=== PATIENT | male | born 1975 | race Hispanic/Latino ===

== ENCOUNTER 2017-05-29 09:11 | Observation (INO) | payer OTHER ==
[2017-05-29 09:31] VITALS: BMI 24.4
[2017-05-29] MEDS ORDERED: Amiodarone 150mg/3 ml vial ONE (09:33)
[2017-05-29] MEDS ORDERED: Amiodarone 900 MG in Dextrose 5% In Water 500 ML IVPB SCH (09:43)
[2017-05-29 10:11] LABS: ALKALINE PHOSPHATASE 201 U/L (38-126); ALT/SGPT 56 U/L (21-72); AST/SGOT 167 U/L (17-59); BILIRUBIN,TOTAL 2.1 mg/dl (0.2-1.3); BLOOD UREA NITROGEN 6 mg/dl (9-20); CALCIUM 8.8 mg/dL (8.4-10.2); CARBON DIOXIDE 20 mmol/L (22-30); CHLORIDE 100 mmol/L (98-107); GFR AFRICAN-AMERICAN > 60; GLUCOSE,RANDOM 102 mg/dL (75-110); SODIUM 139 mmol/l (132-148); TOTAL PROTEIN 8.6 G/DL (6.3-8.2)
[2017-05-29 10:17] LABS: ALB/GLOB RATIO 1.2 (1.0-2.1)
[2017-05-29 10:24] LABS: BASO # 0.1 K/uL (0.0-0.2); BASO % 1.3 % (0.0-2.0); EOS # 0.1 K/uL (0.0-0.7); EOS % 0.7 % (0.0-4.0); HEMATOCRIT 39.2 % (35.0-51.0); LYMPH # 1.2 K/uL (1.0-4.3); LYMPH % 14.6 % (20.0-40.0); MEAN CELL VOLUME 99.2 fl (80.0-94.0); MEAN CORPUSCULAR HEMOGLOBIN 34.2 pg (27.0-31.0); MEAN CORPUSCULAR HGB CONC 34.5 g/dL (33.0-37.0); MEAN PLATELET VOLUME 7.8 fl (7.2-11.7); MONO # 0.7 K/uL (0.0-0.8); MONO % 8.8 % (0.0-10.0); NEUT % 74.6 % (50.0-75.0); NRBC % 0.1 % (0.0-0.0); RED CELL DISTRIBUTION WIDTH 12.7 % (11.5-14.5)
[2017-05-29 10:41] LABS: PARTIAL THROMBOPLASTIN TIME 35.5 Seconds (25.6-37.1)
--- NOTE | 2017-05-29 10:41 | ED PDOC ---
HPI: Chest Pain Time Seen by Provider: 05/29/17 09:27 Chief Complaint (Nursing): Chest Pain Chief Complaint (Provider): Chest Pain History Per: Patient History/Exam Limitations: no limitations Onset/Duration Of Symptoms: Days (x2) Current Symptoms Are (Timing): Still Present Additional Complaint(s): Mustapha Jacobs is a 42 year old male with no past medical history who presents to the ED complaining of left sided chest pain with palpitations and shortness of breath x2 days. Patient states they experienced similar symptoms 6 months ago. Patient was admitted and had a normal cardiac catheterization at that time. Patient was discharged with prescriptions for hypertension and hypercholesterolemia medications which he ran out of and never refilled. Patient did not follow up. PMD: Non-[facility] Provider Past Medical History Reviewed: Historical Data, Nursing Documentation, Vital Signs Vital Signs: Last Vital Signs Temp 98.5 F 05/30/17 08:00 Pulse 86 05/30/17 09:00 Resp 18 05/30/17 08:00 BP 125/84 05/30/17 08:00 Pulse Ox 97 05/30/17 08:00 - Medical History PMH: HTN, Hypercholesterolemia Denies: Chronic Kidney Disease - Surgical History Surgical History: Appendectomy (age 16) Other surgeries: Left elbow - Family History Family History: States: Unknown Family Hx, CAD (Father had quadruple bypass at 60yo. ) - Social History Current smoker - smoking cessation education provided: No Ex-Smoker (has not smoked in the last 12 months): Yes Alcohol: > 2 Drinks/Day (11 glasses of wine per day) Drugs: Denies - Home Medications Home Medications: Ambulatory Orders Medication Instructions Recorded Levofloxacin 500 mg PO DAILY #7 ml 05/30/17 - Allergies Allergies/Adverse Reactions: Allergies Allergy/AdvReac Type Severity Reaction Status Date / Time No Known Allergies Allergy Verified 05/29/17 09:30 Review of Systems ROS Statement: Except As Marked, All Systems Reviewed And Found Negative Cardiovascular: Positive for: Chest Pain (Left sided), Palpitations Physical Exam - Reviewed Nursing Documentation Reviewed: Yes Vital Signs Reviewed: Yes - Physical Exam Appears: Positive for: Well, Non-toxic, No Acute Distress Head Exam: Positive for: ATRAUMATIC, NORMAL INSPECTION, NORMOCEPHALIC Skin: Positive for: Normal Color, Warm, Dry Eye Exam: Positive for: EOMI, Normal appearance, PERRL Neck: Positive for: Normal, Painless ROM, Supple Cardiovascular/Chest: Positive for: Tachycardia (Regular rhythm). Negative for : Murmur Respiratory: Positive for: Normal Breath Sounds. Negative for: Respiratory Distress Gastrointestinal/Abdominal: Positive for: Normal Exam, Bowel Sounds, Soft. Negative for: Tenderness Back: Positive for: Normal Inspection. Negative for: L CVA Tenderness, R CVA Tenderness, Vertebral Tenderness Extremity: Positive for: Normal ROM. Negative for: Pedal Edema, Deformity Neurologic/Psych: Positive for: Alert, Oriented - Laboratory Results Result Diagrams: 05/29/17 09:56 05/29/17 09:56 - ECG ECG: Positive for: Interpreted By Me, Viewed By Me, Discussed With Biomedical Technician (Dr. Guillermo) Interpretation Of Abn EKG: Wide complex tachycardia at 166 BPM, LBBB O2 Sat by Pulse Oximetry: 92 (NC) Pulse Ox Interpretation: Abnormal - Critical Care Total Time (In Min): 30 Medical Decision Making Medical Decision Making: Time: 09:32 Initial Impression: SVT, chest pain Initial Plan: --EKG --Alcohol serum --CMP --Troponin I --CBC w/ differential --D Dimer --PTT --Prothrombin --X-Ray chest portable --Urinalysis --Reevaluation Time: 9:35 Plan: --Consulted Dr. Guillermo who reviewed EKG. Recommends adenosine. --Adenosine 6 mg IVP --Adenosine 12 mg IVP, HR normalized, repeat EKG performed, SR. --Reevaluation Time: 11:20 Plan: --Patient will be admitted for OBS-Tele for SVT and chest pain, under the service of Dr. Timbo Rhoades. Scribe Attestation: Documented by Naresh Brewer, acting as a scribe for Teri Hyatt MD Provider Scribe Attestation: All medical record entries made by the Scribe were at my direction and personally dictated by me. I have reviewed the chart and agree that the record accurately reflects my personal performance of the history, physical exam, medical decision making, and the department course for this patient. I have also personally directed, reviewed, and agree with the discharge instructions and disposition. Disposition - Clinical Impression Clinical Impression: SVT (supraventricular tachycardia), Chest pain - Patient ED Disposition Is Patient to be Admitted: Yes - Disposition Disposition Time: 11:20 Condition: GUARDED - Pt Status Changed To: Hospital Disposition Of: Observation - POA Present On Arrival: None
--- NOTE | 2017-05-29 10:47 | CP.PCM.CON ---
History of Present Illness - History of Present Illness History of Present Illness: this 42-year-old man came into the emergency room complaining of palpitations and a slight sense of lightheadedness. He was found to be in a broad complex tachycardia at 166 bpm. His blood pressure was 114/70 mmHg. He did not show any clinical evidence of congestive cardiac failure. He was given 2 doses of adenosine intravenously ( initially 6 mg followed by a 12 mg bolus) to which she responded by reverting back to sinus rhythm at 90 bpm. The patient was hospitalized in July precisely the same symptoms and same clinical findings and had responded to IV adenosine. He was sent home taking antihypertensives medications which she discontinued when he ran out of them a month later. Patient gives history of similar episodes of palpitations off and on during his childhood. He denies any history of taking decongestions or excessive caffeine or smoking or using recreational drugs. The patient had undergone an echocardiogram and a coronary angiogram in July of this year when he was hospitalized and his coronaries were found to have no stenotic lesions and his left ventricular systolic function was well preserved and there was no evidence of any significant valvular disease. Since his July hospitalization the patient has gone about his life normally and reports excellent effort tolerance. His father had coronary artery disease. No other member of the family has any vascular disease and nobody has diabetes mellitus. On physical examination this is a young white male alert awake and coherent afebrile able to lie virtually flat and breathe comfortably at 16 breaths per minute and carry on a conversation. His heart rate was 90 bpm and regular. His blood pressure was 124/82 mmHg. His jugular venous pressure was not elevated and there was no edema hour his lower extremities. His pedal pulses are well felt. The apex was in the fifth space in for stent second heart sounds were normal there was no murmur no gallop no rales his abdomen was soft liver and spleen are not palpable. His electrocardiogram at admission showed broad complex tachycardia of a left bundle branch block type which subsequent to cardioversion with IV adenosine showed sinus rhythm with left ventricular hypertrophy and deep T inversions in anterior chest leads. The electrocardiogram following cardioversion in July had exactly similar pattern immediately post tachycardia. His lab data was noted. Impression: supraventricular tachycardia with aberrancy. No evidence of coronary artery disease. The patient would be observed overnight and if stable would be recommended to have an EP evaluation for evaluation for concealed conduction pathway and an ablation procedure. Past Patient History - Infectious Disease Hx of Infectious Diseases: None - Past Medical History & Family History Past Medical History?: Yes - Past Social History Smoking Status: Former Smoker - CARDIAC Hx Cardiac Disorders: Yes (SVT) Hx Hypercholesterolemia: Yes Hx Hypertension: Yes - PULMONARY Hx Respiratory Disorders: No - NEUROLOGICAL Hx Neurological Disorder: No - HEENT Hx HEENT Problems: No - RENAL Hx Chronic Kidney Disease: No - ENDOCRINE/METABOLIC Hx Endocrine Disorders: No - HEMATOLOGICAL/ONCOLOGICAL Hx Blood Disorders: No - INTEGUMENTARY Hx Dermatological Problems: No - MUSCULOSKELETAL/RHEUMATOLOGICAL Hx Musculoskeletal Disorders: No Hx Falls: No - GASTROINTESTINAL Hx Gastrointestinal Disorders: No - GENITOURINARY/GYNECOLOGICAL Hx Genitourinary Disorders: No - PSYCHIATRIC Hx Psychophysiologic Disorder: No Hx Substance Use: No - SURGICAL HISTORY Hx Surgeries: Yes Hx Appendectomy: Yes (age 16) Hx Orthopedic Surgery: Yes (left elbow) - ANESTHESIA Hx Anesthesia: Yes Hx Anesthesia Reactions: No Meds Allergies/Adverse Reactions: Allergies Allergy/AdvReac Type Severity Reaction Status Date / Time No Known Allergies Allergy Verified 05/29/17 09:30 Results - Vital Signs Recent Vital Signs: Last Vital Signs Temp 97.6 F 05/29/17 09:25 Pulse 94 H 05/29/17 10:11 Resp 22 05/29/17 10:11 BP 121/94 H 05/29/17 09:30 Pulse Ox 92 L 05/29/17 10:11 - Labs Result Diagrams: 05/29/17 09:56 05/29/17 09:56 Labs: Laboratory Results - last 24 hr 05/29/17 05/29/17 05/29/17 09:56 09:56 10:05 WBC 8.0 RBC 3.95 L Hgb 13.5 Hct 39.2 MCV 99.2 H D MCH 34.2 H MCHC 34.5 RDW 12.7 Plt Count 183 MPV 7.8 Neut % (Auto) 74.6 Lymph % (Auto) 14.6 L [place] % (Auto) 8.8 Eos % (Auto) 0.7 Baso % (Auto) 1.3 Neut # 6.0 Lymph # 1.2 [place] # 0.7 Eos # 0.1 Baso # 0.1 Sodium 139 Potassium 4.0 Chloride 100 Carbon Dioxide 20 L Anion Gap 23 H BUN 6 L Creatinine 0.7 L Est GFR ( Amer) > 60 Est GFR (Non-Af Amer) > 60 Random Glucose 102 Calcium 8.8 Total Bilirubin 2.1 H AST 167 H ALT 56 Alkaline Phosphatase 201 H Troponin I 0.0210 Total Protein 8.6 H Albumin 4.6 Globulin 4.0 H Albumin/Globulin Ratio 1.2 Alcohol, Quantitative 80 H
--- NOTE | 2017-05-29 12:17 | CARD ---
APPROVED REPORT EKG Measurement Heart [id number] 150P49 [id number] <Conclusion> Normal sinus rhythm Possible Left atrial enlargement Left ventricular hypertrophy with repolarization abnormality Prolonged QT Possible anterior wall ischemia Abnormal ECG
--- NOTE | 2017-05-29 14:38 | RAD ---
HISTORY: Chest pain. Technique: Portable 09:58 COMPARISON: 11/10/2011 FINDINGS: LUNGS: Infiltrate, right lower lobe with air bronchograms consistent with acute pneumonia. PLEURA: No significant pleural effusion identified, no pneumothorax apparent. CARDIOVASCULAR: Normal. OSSEOUS STRUCTURES: No significant abnormalities. VISUALIZED UPPER ABDOMEN: Normal. OTHER FINDINGS: None. IMPRESSION: Right lower lobe infiltrate. Please note: No preliminary interpretation of this examination rendered by emergency department personnel (Physician and/or PA declined to provide preliminary report of their findings/ observations).
[2017-05-30 00:14] VITALS: RESP 18
--- NOTE | 2017-05-30 01:32 | HP ---
HISTORY OF PRESENT ILLNESS: Mr. Jacobs is a 42-year-old male who was admitted via the Emergency Room because of left-sided chest pain and palpitations. He was found to have supraventricular tachycardia, was given IV Cardizem x2, and rhythm reverted back to sinus rhythm. He indicates that he was recently discharged from [facility] in 07/2016 for similar condition requiring cardiac catheterization and echocardiogram. There were no stenotic lesions noted during the catheterization and echocardiogram was nonrevealing. He ran out of his medications after he was discharged and did not take that for one month. PAST MEDICAL HISTORY: Hypertension, hyperlipidemia, and chronic alcohol use. SOCIAL HISTORY: Denies smoking. He drinks alcohol heavily, does not smoke, does not use drugs and is . FAMILY HISTORY: Remarkable for father who had heart problems. PHYSICAL EXAMINATION: GENERAL: The patient is alert, oriented, appears much more comfortable since admission. VITAL SIGNS: Blood pressure 141/92 with a pulse of 97, respiratory rate 20. He is febrile. O2 sat 97% on room air. SKIN: Shows fair turgor. HEENT: Pupils are equal, reactive to light and accommodation. JVP flat. Mouth shows fair hygiene. LUNGS: Clear. HEART: Regular. No murmurs or gallops. ABDOMEN: Soft, nontender, no organomegaly. EXTREMITIES: Show no edema or cyanosis. CENTRAL NERVOUS SYSTEM: Grossly intact. LABORATORY DATA: Remarkable for WBC of 8.0, hemoglobin 13.5, platelet count 183. Sodium 139, potassium 4.0, BUN 6, creatinine 0.7. AST 167, ALT 56. Troponin 0.0210. EKG, normal sinus rhythm, possible left atrial enlargement, left ventricular hypertrophy with repolarization abnormality, QT prolongation. This is post IV Cardizem. IMPRESSION: Supraventricular tachycardia, history of hypertension, history of hyperlipidemia, noncompliance to medication, history of chronic alcohol use. PLAN: Cardiac evaluation, continue antiarrhythmic therapy, monitor on telemetry. Patient may need EPS studies. Timbo Rhoades MD
[2017-05-30 06:10] LABS: T4 10.5 ug/dl (5.5-11.0)
[2017-05-30 06:24] LABS: THYROID STIMULATING HORMONE 1.94 mIU/ML (0.46-4.68)
[2017-05-30 08:16] VITALS: BP 125/84; PULSE 86; TEMP 98.5
--- NOTE | 2017-05-30 08:52 | CP.PCM.DIS ---
Provider - Provider Date of Admission: 05/29/17 11:20 Attending physician: Timbo Rhoades MD Time Spent in preparation of Discharge (in minutes): 35 Diagnosis - Discharge Diagnosis (1) Pulmonary infiltrate Status: Acute (2) WPW (Axbui-Pvgpneqqv-Ukucx syndrome) Status: Acute (3) Alcohol abuse Status: Acute (4) SVT (supraventricular tachycardia) Status: Acute Hospital Course - Lab Results Lab Results: Most Recent Lab Values WBC 8.0 K/uL (4.8-10.8) 05/29/17 09:56 RBC 3.95 Mil/uL (4.40-5.90) L 05/29/17 09:56 Hgb 13.5 g/dL (12.0-18.0) 05/29/17 09:56 Hct 39.2 % (35.0-51.0) 05/29/17 09:56 MCV 99.2 fl (80.0-94.0) H D 05/29/17 09:56 MCH 34.2 pg (27.0-31.0) H 05/29/17 09:56 MCHC 34.5 g/dL (33.0-37.0) 05/29/17 09:56 RDW 12.7 % (11.5-14.5) 05/29/17 09:56 Plt Count 183 K/uL (130-400) 05/29/17 09:56 MPV 7.8 fl (7.2-11.7) 05/29/17 09:56 Neut % (Auto) 74.6 % (50.0-75.0) 05/29/17 09:56 Lymph % (Auto) 14.6 % (20.0-40.0) L 05/29/17 09:56 [place] % (Auto) 8.8 % (0.0-10.0) 05/29/17 09:56 Eos % (Auto) 0.7 % (0.0-4.0) 05/29/17 09:56 Baso % (Auto) 1.3 % (0.0-2.0) 05/29/17 09:56 Neut # 6.0 K/uL (1.8-7.0) 05/29/17 09:56 Lymph # 1.2 K/uL (1.0-4.3) 05/29/17 09:56 Eddy # 0.7 K/uL (0.0-0.8) 05/29/17 09:56 Eos # 0.1 K/uL (0.0-0.7) 05/29/17 09:56 Baso # 0.1 K/uL (0.0-0.2) 05/29/17 09:56 PT 12.9 Seconds (9.8-13.1) 05/29/17 09:56 INR 1.1 (0.9-1.2) 05/29/17 09:56 APTT 35.5 Seconds (25.6-37.1) 05/29/17 09:56 D-Dimer, Quantitative 288 ng/mlDDU (0-230) H 05/29/17 09:56 Sodium 139 mmol/l (132-148) 05/29/17 09:56 Potassium 4.0 MMOL/L (3.6-5.0) 05/29/17 09:56 Chloride 100 mmol/L (98-107) 05/29/17 09:56 Carbon Dioxide 20 mmol/L (22-30) L 05/29/17 09:56 Anion Gap 23 (10-20) H 05/29/17 09:56 BUN 6 mg/dl (9-20) L 05/29/17 09:56 Creatinine 0.7 mg/dL (0.8-1.5) L 05/29/17 09:56 Est GFR ( Amer) > 60 05/29/17 09:56 Est GFR (Non-Af Amer) > 60 05/29/17 09:56 Random Glucose 102 mg/dL (75-110) 05/29/17 09:56 Calcium 8.8 mg/dL (8.4-10.2) 05/29/17 09:56 Total Bilirubin 2.1 mg/dl (0.2-1.3) H 05/29/17 09:56 AST 167 U/L (17-59) H 05/29/17 09:56 ALT 56 U/L (21-72) 05/29/17 09:56 Alkaline Phosphatase 201 U/L (38-126) H 05/29/17 09:56 Troponin I 0.1100 ng/mL (0.00-0.120) 05/29/17 18:54 Total Protein 8.6 G/DL (6.3-8.2) H 05/29/17 09:56 Albumin 4.6 g/dL (3.5-5.0) 05/29/17 09:56 Globulin 4.0 gm/dL (2.2-3.9) H 05/29/17 09:56 Albumin/Globulin Ratio 1.2 (1.0-2.1) 05/29/17 09:56 Thyroxine (T4) 10.5 ug/dl (5.5-11.0) 05/30/17 04:20 TSH 3rd Generation 1.94 mIU/ML (0.46-4.68) 05/30/17 04:20 Alcohol, Quantitative 80 mg/dl (0-10) H 05/29/17 10:05 - Hospital Course Hospital Course: symptom-free ekg-wpw syndrome Discharge Exam - Head Exam Head Exam: ATRAUMATIC, NORMAL INSPECTION, NORMOCEPHALIC - Eye Exam Eye Exam: EOMI, Normal appearance, PERRL Pupil Exam: NORMAL ACCOMODATION, PERRL - GI/Abdominal Exam GI & Abdominal Exam: Normal Bowel Sounds - Rectal Exam Rectal Exam: NORMAL INSPECTION - Neurological Exam Neurological exam: Alert, CN II-XII Intact, Normal Gait, Oriented x3, Reflexes Normal - Psychiatric Exam Psychiatric exam: Normal Affect, Normal Mood - Skin Skin Exam: Dry, Intact, Normal Color, Warm Discharge Plan - Follow Up Plan Condition: GOOD Disposition: HOME/ ROUTINE Patient education suggested?: Yes Additional Instructions: case discussed with primary health care nurse--dr sims--pt to be discharged today to follow up with primary health care nurse for electrophysiologic studies no cardiac meds for now levaquin po
[2017-05-30] MEDS ORDERED: Enoxaparin 40 mg Syringe SC SCH (09:00)
--- NOTE | 2017-05-30 09:12 | CP.PCM.PN ---
Subjective - Date & Time of Evaluation Date of Evaluation: 05/30/17 Time of Evaluation: 08:30 - Subjective Subjective: Symptom free over last 20 hrs Telemetry shows sinus rhythm at 70 BPM, no tachyarrhythmias BP 134/70 mm Hg No signs of CHF EKG this AM shows sinus rhythm with normal P-R interval and Delta waves Pt knows he will benefit by consulting EP for ablation procedure Phone # for EP given Pt may be sent home. Objective - Vital Signs/Intake and Output Vital Signs (last 24 hours): Temp Pulse Resp BP Pulse Ox 98.5 F 86 18 125/84 97 05/30/17 08:00 05/30/17 08:00 05/30/17 08:00 05/30/17 08:00 05/30/17 08:00 - Medications Medications: Current Medications Enoxaparin Sodium (Lovenox) 40 mg SC DAILY [facility] PRN Reason: Protocol Folic Acid (Folic Acid) 1 mg PO DAILY [facility] Last Admin: 05/29/17 16:34 Dose: 1 mg Lorazepam (Ativan) 1 mg PO Q8 [facility] Last Admin: 05/30/17 00:08 Dose: 1 mg Thiamine HCl (Vitamin B1 Tab) 100 mg PO DAILY [facility] - Labs Labs: 05/29/17 09:56 05/29/17 09:56 PT 12.9 Seconds (9.8-13.1) 05/29/17 09:56 INR 1.1 (0.9-1.2) 05/29/17 09:56 APTT 35.5 Seconds (25.6-37.1) 05/29/17 09:56
--- NOTE | 2017-05-30 09:24 | CARD ---
APPROVED REPORT EKG Measurement Heart [id number] <Conclusion> Wide QRS tachycardia Left bundle branch block Abnormal ECG
--- NOTE | 2017-05-30 11:14 | CARD ---
APPROVED REPORT EKG Measurement Heart [id number] NV 142P54 [id number] <Conclusion> Normal sinus rhythm [id number]-[id number] Abnormal ECG
[2017-05-31 23:12] VITALS: O2SAT 92
== END 2017-05-30 10:48 | disposition home or self-care (01) ==
LOC: H.ER 09:11 → H.ERHOLD 11:20 → H.TEL 13:40
PROVIDERS: ADMIT Internal Medicine Pulmonary Disease; ATTEND Internal Medicine Pulmonary Disease
DX: I47.1 Supraventricular tachycardia (principal); I45.6 Pre-excitation syndrome; I11.9 Hypertensive heart disease without heart failure; E78.5 Hyperlipidemia, unspecified; F10.129 Alcohol abuse with intoxication, unspecified; Y90.4 Blood alcohol level of 80-99 mg/100 ml; I51.7 Cardiomegaly; I44.7 Left bundle-branch block, unspecified; Z91.14 Patient's other noncompliance with medication regimen; Z87.891 Personal history of nicotine dependence
CPT/HCPCS: 36415; 71010; 80053; 80320; 84436; 84443; 84484; 85025; 85378; 85610; 85730; 93005; 96372; 96374; 99285; G0378; J0153; J1650

== ENCOUNTER 2017-07-03 17:47 | Emergency (ER) | payer OTHER ==
[2017-07-03 17:48] VITALS: BMI 24.4
[2017-07-03 18:00] VITALS: O2SAT 97
[2017-07-03 18:58] LABS: BASO # 0.2 K/uL (0.0-0.2); BASO % 2.3 % (0.0-2.0); EOS % 0.6 % (0.0-4.0); HEMATOCRIT 42.5 % (35.0-51.0); LYMPH # 2.9 K/uL (1.0-4.3); LYMPH % 36.3 % (20.0-40.0); MEAN CELL VOLUME 98.8 fl (80.0-94.0); MEAN CORPUSCULAR HEMOGLOBIN 33.4 pg (27.0-31.0); MEAN CORPUSCULAR HGB CONC 33.8 g/dL (33.0-37.0); MEAN PLATELET VOLUME 7.5 fl (7.2-11.7); MONO # 0.5 K/uL (0.0-0.8); MONO % 5.8 % (0.0-10.0); NEUT # 4.4 K/uL (1.8-7.0); NRBC % 0.2 % (0.0-0.0); RED CELL DISTRIBUTION WIDTH 12.6 % (11.5-14.5)
--- NOTE | 2017-07-03 19:02 | ED PDOC ---
HPI: SOB/CHF/COPD Time Seen by Provider: 07/03/17 18:09 Chief Complaint (Nursing): Palpitations Chief Complaint (Provider): palpitations History Per: Patient History/Exam Limitations: intoxication Onset/Duration Of Symptoms: Days (3) Current Symptoms Are (Timing): Still Present Quality: Pressure, "Pain" Additional Complaint(s): Substernal pressure and palpatations for 3 days, no relief with relaxation techniques and drinking alcohol. History of similar episodes in the past and has follow up with specialist Gm 5. Reports he always gets given a medication IV that makes him feel like he's dying and the palpatations resolve. PMD None Past Medical History Reviewed: Historical Data, Nursing Documentation, Vital Signs Vital Signs: Last Vital Signs Temp 97.4 F L 07/03/17 19:38 Pulse 101 H 07/03/17 19:38 Resp 18 07/03/17 19:38 BP 126/79 07/03/17 19:38 Pulse Ox 97 07/03/17 20:07 - Medical History PMH: HTN, Hypercholesterolemia Denies: Chronic Kidney Disease - Surgical History Surgical History: Appendectomy (age 16) - Family History Family History: States: CAD (Father had quadruple bypass at 60yo. ) - Social History Current smoker - smoking cessation education provided: Yes Alcohol: Social - Home Medications Home Medications: Ambulatory Orders Medication Instructions Recorded No Known Home Med 07/03/17 - Allergies Allergies/Adverse Reactions: Allergies Allergy/AdvReac Type Severity Reaction Status Date / Time No Known Allergies Allergy Verified 05/29/17 09:30 Review of Systems ROS Statement: Except As Marked, All Systems Reviewed And Found Negative Constitutional: Positive for: Weakness, Malaise Cardiovascular: Positive for: Chest Pain, Palpitations, Light Headedness Respiratory: Positive for: Shortness of Breath Neurological: Positive for: Headache Physical Exam - Reviewed Nursing Documentation Reviewed: Yes Vital Signs Reviewed: Yes - Physical Exam Appears: Positive for: Uncomfortable, In Acute Distress Head Exam: Positive for: ATRAUMATIC, NORMOCEPHALIC Skin: Positive for: Warm, Dry, Pallor Eye Exam: Positive for: EOMI, PERRL ENT: Positive for: Other (dry mucus membranes) Neck: Positive for: Painless ROM, Supple Cardiovascular/Chest: Positive for: Tachycardia. Negative for: Murmur Respiratory: Positive for: Normal Breath Sounds. Negative for: Wheezing Gastrointestinal/Abdominal: Positive for: Soft. Negative for: Tenderness Back: Positive for: Normal Inspection. Negative for: Decreased ROM Extremity: Positive for: Normal ROM. Negative for: Deformity Lymphatic: Negative for: Adenopathy Neurologic/Psych: Positive for: Alert, Other (slurred speech, sometimes loses train of thought). Negative for: Motor/Sensory Deficits - Laboratory Results Result Diagrams: 07/03/17 18:51 07/03/17 18:51 - ECG ECG Rhythm: Positive for: SVT O2 Sat by Pulse Oximetry: 97 Pulse Ox Interpretation: Normal - Critical Care Total Time (In Min): 30 Documented Critical Care: Time excludes all time spent performint seperately billable procedures Medical Decision Making Medical Decision Making: Reviewed previous chart. Episodes of tachycardia have been wide complex on previous EKG and responded to adenosine on previous visits. Adenosine IV to be given 1830p Pt HR normalized to 90s after adenosine, sinus with LVH and possible WPW. Needs hospitalization for wide complex SVT. 745p Informed by nurse that pt eloped. IV was removed by nurse because he had threatened to leave with it. He was intoxicated on arrival and I called him on cell phone and he answered. He reports that he "had to go". Strongly advised to return to ER and that he ultimately should be admitted to hospital. He said he does not want to and that currently is walking home. Will not given his current address (he says he no longer lives at the [place] address on chart, but lives in [place]). He is oriented x 3 and reports that he understands risks/ benefits of leaving, including risk of or severe permanent disability and he refuses to return. Disposition - Clinical Impression Clinical Impression: SVT (supraventricular tachycardia), Alcohol abuse Counseled Patient/Family Regarding: Studies Performed, Diagnosis - Disposition Disposition: Eloped Disposition Time: 20:00 Condition: UNKNOWN
[2017-07-03 19:23] LABS: ALB/GLOB RATIO 1.1 (1.0-2.1); ALKALINE PHOSPHATASE 151 U/L (38-126); ALT/SGPT 63 U/L (21-72); AST/SGOT 180 U/L (17-59); BILIRUBIN,TOTAL 1.2 mg/dl (0.2-1.3); BLOOD UREA NITROGEN 6 mg/dl (9-20); CALCIUM 9.1 mg/dL (8.4-10.2); CARBON DIOXIDE 18 mmol/L (22-30); CHLORIDE 108 mmol/L (98-107); GFR AFRICAN-AMERICAN > 60; GLUCOSE,RANDOM 97 mg/dL (75-110); MAGNESIUM 1.6 MG/DL (1.6-2.3); POTASSIUM 4.3 MMOL/L (3.6-5.0); SODIUM 147 mmol/l (132-148); TOTAL PROTEIN 9.2 G/DL (6.3-8.2)
[2017-07-03 19:40] VITALS: BP 126/79; PULSE 101; RESP 18; TEMP 97.4
[2017-07-03 19:44] LABS: THYROID STIMULATING HORMONE 0.82 mIU/ML (0.46-4.68)
[2017-07-03 19:53] LABS: ALCOHOL SERUM 428 mg/dl (0-10)
[2017-07-03 20:34] LABS: PARTIAL THROMBOPLASTIN TIME 43.8 Seconds (25.6-37.1)
--- NOTE | 2017-07-04 07:34 | RAD ---
HISTORY: palpitaions COMPARISON: Portable chest 05/29/2017. FINDINGS: LUNGS: Prior medial basilar infiltrate appears to have resolved. No acute infiltrate is appreciated bilaterally at this time. PLEURA: No significant pleural effusion identified, no pneumothorax apparent. CARDIOVASCULAR: Normal. OSSEOUS STRUCTURES: No significant abnormalities. VISUALIZED UPPER ABDOMEN: Normal. OTHER FINDINGS: None. IMPRESSION: Resolution of prior right basilar infiltrate. No acute infiltrate, pleural effusion or pneumothorax is appreciated at this time.
--- NOTE | 2017-07-04 10:54 | CARD ---
APPROVED REPORT EKG Measurement Heart [id number] NV 150P50 [id number] <Conclusion> Normal sinus rhythm Biatrial enlargement Left ventricular hypertrophy with QRS widening and repolarization abnormality Abnormal ECG
--- NOTE | 2017-07-04 11:22 | CARD ---
APPROVED REPORT EKG Measurement Heart [id number] <Conclusion> Wide QRS tachycardia Left bundle branch block Abnormal ECG
== END 2017-07-03 20:00 | disposition left against medical advice (07) ==
LOC: H.ER 17:47
DX: F10.10 Alcohol abuse, uncomplicated (principal); I47.1 Supraventricular tachycardia; E78.00 Pure hypercholesterolemia, unspecified; F17.200 Nicotine dependence, unspecified, uncomplicated; I11.9 Hypertensive heart disease without heart failure; I45.6 Pre-excitation syndrome; J44.9 Chronic obstructive pulmonary disease, unspecified
CPT/HCPCS: 71010; 80053; 80320; 83735; 83880; 84100; 84443; 84484; 85025; 85610; 85730; 86850; 86900; 93005; 96374; 99284; J0153

== ENCOUNTER 2017-09-14 16:13 | Emergency (ER) | payer OTHER ==
[2017-09-14 16:13] VITALS: BMI 24.4
[2017-09-14 16:23] VITALS: TEMP 98.1
--- NOTE | 2017-09-14 17:13 | RAD ---
HISTORY: palpitations COMPARISON: Chest x-ray performed 07/03/17 TECHNIQUE: Chest, one view. FINDINGS: LUNGS: No focal consolidation. Please note that chest x-ray has limited sensitivity for the detection of pulmonary masses. PLEURA: No significant pleural effusion identified. No definite pneumothorax . CARDIOVASCULAR: Heart size appears within normal limits. OSSEOUS STRUCTURES: No acute osseous abnormality identified. VISUALIZED UPPER ABDOMEN: Unremarkable. OTHER FINDINGS: None. IMPRESSION: No focal consolidation identified.
[2017-09-14 17:30] LABS: HEMOGLOBIN 13.4 g/dL (12.0-18.0); LYMPH % 40.3 % (20.0-40.0); MEAN CELL VOLUME 98.4 fl (80.0-94.0); MEAN CORPUSCULAR HEMOGLOBIN 32.7 pg (27.0-31.0); MEAN CORPUSCULAR HGB CONC 33.2 g/dL (33.0-37.0); MEAN PLATELET VOLUME 7.5 fl (7.2-11.7); NEUT % 50.5 % (50.0-75.0); RBC 4.1 Mil/uL (4.40-5.90); RED CELL DISTRIBUTION WIDTH 12.9 % (11.5-14.5); WHITE BLOOD COUNT 4.5 K/uL (4.8-10.8)
[2017-09-14 17:31] LABS: BASO % 1.1 % (0.0-2.0); EOS % 0.5 % (0.0-4.0); LYMPH # 1.8 K/uL (1.0-4.3); MONO # 0.3 K/uL (0.0-0.8); MONO % 7.6 % (0.0-10.0); NEUT # 2.3 K/uL (1.8-7.0); NRBC % 0.2 % (0.0-0.0)
[2017-09-14 17:35] LABS: ALB/GLOB RATIO 1.2 (1.0-2.1); ALBUMIN 4.9 g/dL (3.5-5.0); ALT/SGPT 70 U/L (21-72); AST/SGOT 196 U/L (17-59); BLOOD UREA NITROGEN 9 mg/dl (9-20); CALCIUM 9.5 mg/dL (8.4-10.2); GFR AFRICAN-AMERICAN > 60; GFR NON-AFRICAN AMERICAN > 60
--- NOTE | 2017-09-14 17:38 | ED PDOC ---
HPI: Hypertension/Hypotension Time Seen by Provider: 09/14/17 16:20 Chief Complaint (Nursing): Chest Pain Chief Complaint (Provider): palpitations History Per: Patient History/Exam Limitations: no limitations Onset/Duration Of Symptoms: Hrs (4), Sudden Onset Current Symptoms Are (Timing): Better Associated Symptoms: Chest Pain, Dyspnea, Dizziness. denies: Blurred Vision, Headache Quality Of Symptoms: Rapid Heart Rate Severity: Severe Additional Complaint(s): 42yo male c/o palpitations which started earlier today c/w prior history of same. Symptoms associated with chest discomfort and dizziness, mild dyspnea. Denies syncope, edema, orthopnea or headache. States scheduled for ablation w Dr Mcgraw at [place] on october 03. Currently taking no medications. Denies drug or alcohol use today. Patient is a poor historian- unsure of his precise diagnosis and does not recall prior supervisor finish end he saw other than Dr Mcgraw. Against Medical Advice - AMA Patient Left Against Medical Advice: The patient declines admission to the hospital and wishes to leave the Emergency Department. This action is against my medical advice. This decision was made with informed refusal. The patient was told that admission to the hospital is necessary. Explanation of the reasons why were discussed. The risks of leaving were explained to the patient and include, but are not limited to, worsening of known or currently unknown conditions, permanent disability and from undiagnosed or untreated conditions. The patient has the capacity to make this informed decision and understands my explanation of the current medical problem and risks of leaving. The patient voluntarily accepts these risks and signed an AMA form documenting our conversation. The patient was given the opportunity to ask questions and reconsider. The patient was encouraged to return to the Emergency Department at any time for further care. Past Medical History Reviewed: Historical Data, Nursing Documentation, Vital Signs Vital Signs: Last Vital Signs Temp 98.1 F 09/14/17 16:15 Pulse 88 09/14/17 17:31 Resp 20 09/14/17 16:15 BP 144/83 09/14/17 16:15 Pulse Ox 93 L 09/14/17 16:15 - Medical History PMH: Cardia Arrhythmia, HTN, Hypercholesterolemia Denies: Chronic Kidney Disease - Surgical History Surgical History: Appendectomy (age 16) - Family History Family History: States: Unknown Family Hx, CAD (Father had quadruple bypass at 60yo. ) - Social History Current smoker - smoking cessation education provided: Yes Alcohol: Occasional - Home Medications Home Medications: Ambulatory Orders Medication Instructions Recorded No Known Home Med 07/03/17 - Allergies Allergies/Adverse Reactions: Allergies Allergy/AdvReac Type Severity Reaction Status Date / Time No Known Allergies Allergy Verified 05/29/17 09:30 Review of Systems Constitutional: Negative for: Fever, Chills Eyes: Negative for: Conjunctivae Inflammation ENT: Negative for: Throat Pain, Throat Swelling Cardiovascular: Positive for: Chest Pain, Palpitations, Light Headedness. Negative for: Orthopnea, Paroxysmal Noc. Dyspnea, Edema Gastrointestinal: Negative for: Abdominal Pain Genitourinary Male: Negative for: Dysuria Musculoskeletal: Negative for: Neck Pain, Shoulder Pain Skin: Negative for: Rash, Lesions, Jaundice Neurological: Positive for: Dizziness. Negative for: Weakness, Numbness, Headache Psych: Negative for: Suicidal ideation Physical Exam - Reviewed Nursing Documentation Reviewed: Yes Vital Signs Reviewed: Yes - Physical Exam Appears: Positive for: Well, Non-toxic, No Acute Distress Head Exam: Positive for: ATRAUMATIC, NORMAL INSPECTION, NORMOCEPHALIC Skin: Positive for: Normal Color, Warm, DRY Eye Exam: Positive for: EOMI, Normal appearance, PERRL ENT: Positive for: Normal ENT Inspection Neck: Positive for: Normal, Painless ROM Cardiovascular/Chest: Positive for: Irregularly Irregular, Other (ectopy) Respiratory: Positive for: CNT, Normal Breath Sounds Gastrointestinal/Abdominal: Positive for: Normal Exam, Bowel Sounds, Soft Back: Positive for: Normal Inspection Extremity: Positive for: Normal ROM Neurologic/Psych: Positive for: Alert, Oriented, Mood/Affect (anxious but communicative), Gait (stable). Negative for: Motor/Sensory Deficits - Laboratory Results Result Diagrams: 09/14/17 17:15 09/14/17 17:15 - ECG ECG: Positive for: Interpreted By Me ECG Rhythm: Positive for: Sinus Tachycardia, Nonspecific Changes Interpretation Of Abn EKG: +PVCS O2 Sat by Pulse Oximetry: 93 Medical Decision Making Medical Decision Making: prior chart reviewed, +cardiology eval Dr Mima fournier 2016 diagnosed SVT w abberancy, recd adenosine. labs were pending and patient decided he did not want to stay in hospital. He was advised admission was recommended given history and EKG findings. He was aware he had a very abnormal EKG and required further testing He was awake, alert and had ability to make decisions. Prior charts also reviewed, prior etoh abuse but stated he hadnt drank in 2 days this visit. No slurred speech, appropriate communicative affect and normal gait Disposition - Clinical Impression Clinical Impression: Palpitations, Dehydration, Cardiac arrhythmia, Left against medical advice - Patient ED Disposition Is Patient to be Admitted: Yes - Disposition Referrals: Chris Guillermo MD [Staff Provider] - Disposition: Against Medical Advice Disposition Time: 17:45 Condition: FAIR Instructions: Palpitations (DC), Leaving Against Medical Advice Forms: [facility] (Lao)
[2017-09-14 17:46] LABS: B-TYPE NATRIURETIC PEPTIDE 50.1 pg/ml (0-450)
[2017-09-14 18:09] VITALS: BP 130/78; PULSE 90; RESP 18
--- NOTE | 2017-09-15 19:11 | CARD ---
APPROVED REPORT EKG Measurement Heart [id number] <Conclusion> Sinus rhythm with frequent premature ventricular complexes Left ventricular hypertrophy with repolarization abnormality Prolonged QT Abnormal ECG
[2017-09-19 11:06] VITALS: O2SAT 93
== END 2017-09-14 18:05 | disposition left against medical advice (07) ==
LOC: H.ER 16:13
DX: R00.2 Palpitations (principal); I49.9 Cardiac arrhythmia, unspecified; E78.00 Pure hypercholesterolemia, unspecified; I10 Essential (primary) hypertension

== ENCOUNTER 2018-11-13 10:46 | Inpatient (IN) | payer OTHER ==
[2018-11-13 10:46] VITALS: BMI 24.4
[2018-11-13] MEDS ORDERED: Sodium Chloride 0.9% 1,000 ML IV STA ×2 (12:01→15:46)
--- NOTE | 2018-11-13 12:06 | ED PDOC ---
HPI: General Adult Chief Complaint (Provider): left hip/pelvic pain History Per: Patient (43 y/o male brought to ED by friend after fall Monday and staying on floor x 4 days. Patient admits h/o heaving alcohol drinking daily. States he had recent ablation 1 month ago [facility]. Not on any anticoagulants. Notes moderate pain in left hip/leg with numbness noted in foot.) <Dank Quiñones - Last Filed: 11/13/18 16:32> <Julianna Adair - Last Filed: 11/13/18 18:09> Time Seen by Provider: 11/13/18 12:04 Chief Complaint (Nursing): Lower Extremity Problem/Injury Supervising Attending Note - Supervising Attending Note The Documented history was done by the: Physician Proof Operator The documented physical exam was done by the: Physician Proof Operator The documented procedures were done by the: Physician Proof Operator - Attestation: I have personally seen and examined this patient.: Yes I have fully participated in the care of the patient.: Yes I have reviewed all pertinent clinical information, including history, physical exam and plan: Yes - Notes: Notes:: Pt with severe leg pain days after a mechanical slip and fall with large hematoma over left hip/buttock. Initial workup including treatment for alcohol withdrawl, rhabdomyolitis, and workup for hip/leg fracture. Pt has been admitted to Medical Service under Dr. Hsu. On evaluation by rn medical surgical, pt complained that hip pain was worsening and he was having tingling to the lower leg (not localised to one side of the leg). Lower leg compartments were soft to touch, thigh compartments were soft to touch. Buttocks was tense and Mendoza was used for compartment pressure measurements. Two measurements showed 8 and a third compartment reading was continuing to rise past 30 however this was most likely inaccurate due to patient shaking and positioning. Dorsalis Pedis and posterior radialis pulses 2+. Foot warm with normal color (aside from echymosis). Pt to be seen by attending surgeon and additional morphine has been ordered. <Julianna Adair - Last Filed: 11/13/18 18:09> Past Medical History Reviewed: Historical Data, Nursing Documentation, Vital Signs Vital Signs: Last Vital Signs Temp 98 F 11/13/18 10:49 Pulse 97 H 04/16/19 10:49 Resp 17 11/13/18 10:49 BP 128/79 11/13/18 10:49 Pulse Ox 97 11/13/18 10:49 - Medical History PMH: Cardia Arrhythmia, HTN, Hypercholesterolemia Denies: Chronic Kidney Disease - Surgical History Surgical History: Appendectomy (age 16) - Family History Family History: States: Unknown Family Hx, CAD (Father had quadruple bypass at 6 0yo. ) <Dank Quiñones - Last Filed: 11/13/18 16:32> Vital Signs: Last Vital Signs Temp 98 F 11/13/18 10:49 Pulse 78 11/13/18 15:09 Resp 17 11/13/18 10:49 BP 154/73 H 11/13/18 15:09 Pulse Ox 97 11/13/18 16:32 <Julianna Adair - Last Filed: 11/13/18 18:09> - Home Medications Home Medications: Ambulatory Orders Medication Instructions Recorded No Known Home Med 07/03/17 - Allergies Allergies/Adverse Reactions: Allergies Allergy/AdvReac Type Severity Reaction Status Date / Time No Known Allergies Allergy Verified 05/29/17 09:30 Review of Systems ROS Statement: Except As Marked, All Systems Reviewed And Found Negative <Dank Quiñones - Last Filed: 11/13/18 16:32> Physical Exam - Reviewed Nursing Documentation Reviewed: Yes Vital Signs Reviewed: Yes - Physical Exam Appears: Positive for: Well, Non-toxic, No Acute Distress, Uncomfortable (patinet noted tremulous) Head Exam: Positive for: ATRAUMATIC, NORMAL INSPECTION, NORMOCEPHALIC Skin: Positive for: Normal Color, Warm, DRY Eye Exam: Positive for: EOMI, Normal appearance, PERRL ENT: Positive for: Normal ENT Inspection Neck: Positive for: Normal, Painless ROM Cardiovascular/Chest: Positive for: Regular Rate, Rhythm Respiratory: Positive for: CNT, Normal Breath Sounds Gastrointestinal/Abdominal: Positive for: Normal Exam, Soft Back: Positive for: Normal Inspection Extremity: Positive for: Normal ROM, Other (large ecchymosis noted left gluteal region to posterior thigh with induration.) Neurological/Psych: Positive for: Awake, Alert, Normal Tone <Dank Quiñones - Last Filed: 11/13/18 16:32> - Laboratory Results Result Diagrams: 11/13/18 12:15 11/13/18 12:15 - ECG O2 Sat by Pulse Oximetry: 97 - Progress ED Course And Treament: ATIVAN 1 MG IV X 1 DOSE KDUR 60MEQ X 1 DOSE NS 1 LITER WIDE OPEN 2ND LITER 500ML PER HOUR D/W DR. HSU. PATIENT TO BE TYPE AND CROSSED 2 UNITS. REPEAT H & H Q4 REQUESTED BY DR. HSU. ATIVAN 1 MG Q 4 PRN ALCOHOL WITHDRAWAL. case d/w surg resident CT ABD/PELVIS FINDINGS: BLADDER: Unremarkable. No mass. REPRODUCTIVE ORGANS: Unremarkable. VISUALIZED BOWEL: Unremarkable. PERITONEUM: Unremarkable, as visualized. No free fluid. No free air. LYMPH NODES: Unremarkable. No enlarged lymph nodes. VASCULATURE: No aortic atherosclerotic calcification or mural plaque present. BONES: No fracture or focal lesion. OTHER FINDINGS: Soft tissue mass/hematoma primarily affecting gluteus radha and medius muscles as well as sartorius and vastus lateralis muscles. IMPRESSION: Large extrapelvic hematoma affecting primarily left gluteal and abductor muscle groups. No intra pelvic component. No evidence of osseous abnormalities/fracture. IMPRESSION: Large lateral hematoma well in capsulated parallel to the left vastus lateralis muscle. More medially and anteriorly major arteries and veins are unaffected by this process. No visible osseous abnormality. There is no evidence of fracture or other findings of consequence. <Dank Quiñones B - Last Filed: 11/13/18 16:32> - Laboratory Results Result Diagrams: 11/13/18 16:45 11/13/18 12:15 Lab Results: PT 16.0 Seconds (9.8-13.1) H 11/13/18 12:15 INR 1.4 11/13/18 12:15 APTT 38.7 Seconds (25.6-37.1) H 11/13/18 12:15 Total Bilirubin 3.0 mg/dl (0.2-1.3) H 11/13/18 12:15 AST 267 U/L (17-59) H D 11/13/18 12:15 ALT 59 U/L (21-72) 11/13/18 12:15 Alkaline Phosphatase 242 U/L (38-126) H D 11/13/18 12:15 Total Protein 8.3 G/DL (6.3-8.2) H 11/13/18 12:15 Albumin 4.1 g/dL (3.5-5.0) 11/13/18 12:15 Globulin 4.1 gm/dL (2.2-3.9) H 11/13/18 12:15 Albumin/Globulin Ratio 1.0 (1.0-2.1) 11/13/18 12:15 <Julianna Adair - Last Filed: 11/13/18 18:09> Disposition - Patient ED Disposition Is Patient to be Admitted: Yes - Disposition Disposition Time: 13:40 - Pt Status Changed To: Hospital Disposition Of: Inpatient - Admit Certification Admit to Inpatient:: After my assessment, the patient will require hospitalization for at least two midnights. This is because of the severity of symptoms shown, intensity of services needed, and/or the medical risk in this patient being treated as an outpatient. <Dank Quiñones - Last Filed: 11/13/18 16:32> <Julianna Adair - Last Filed: 11/13/18 18:09> - Clinical Impression Clinical Impression: Rhabdomyolysis, Alcohol withdrawal, Anemia, Hematoma, Hypokalemia - Disposition Condition: FAIR
[2018-11-13] MEDS ORDERED: Morphine 4 MG/ML VIAL ONE (12:31)
[2018-11-13] MEDS ORDERED: Morphine 4 MG/ML VIAL IVP ONE (12:45)
[2018-11-13 12:47] LABS: BASO # 0.1 K/uL (0.0-0.2); BASO % 0.9 % (0.0-2.0); EOS % 0.1 % (0.0-4.0); HEMOGLOBIN 9.5 g/dL (12.0-18.0); LYMPH # 0.6 K/uL (1.0-4.3); LYMPH % 8.1 % (20.0-40.0); MEAN CELL VOLUME 99.3 fl (80.0-94.0); MEAN CORPUSCULAR HEMOGLOBIN 34.1 pg (27.0-31.0); MEAN CORPUSCULAR HGB CONC 34.3 g/dL (33.0-37.0); MEAN PLATELET VOLUME 8.3 fl (7.2-11.7); MONO # 0.7 K/uL (0.0-0.8); MONO % 9.8 % (0.0-10.0); NEUT # 5.8 K/uL (1.8-7.0); NEUT % 81.1 % (50.0-75.0); NRBC % 0.1 % (0.0-0.0); PLATELET COUNT 89 K/uL (130-400); RBC 2.79 Mil/uL (4.40-5.90); RED CELL DISTRIBUTION WIDTH 13.7 % (11.5-14.5); WHITE BLOOD COUNT 7.2 K/uL (4.8-10.8)
[2018-11-13 12:53] LABS: INR 1.4
[2018-11-13 12:56] LABS: PARTIAL THROMBOPLASTIN TIME 38.7 Seconds (25.6-37.1)
[2018-11-13 13:06] LABS: ALBUMIN 4.1 g/dL (3.5-5.0); ALT/SGPT 59 U/L (21-72); AST/SGOT 267 U/L (17-59); BLOOD UREA NITROGEN 10 mg/dl (9-20); CALCIUM 8.7 mg/dL (8.4-10.2); GFR NON-AFRICAN AMERICAN > 60
[2018-11-13 14:29] LABS: BANDS 1 % (0-2); EOSINOPHIL 1 % (0-7); LYMPHOCYTE 8 % (20-50); MONOCYTE 7 % (0-10); MYELOCYTE 1 % (0-0); NEUTROPHIL 82 % (42-75); TOTAL CELLS COUNTED 100
[2018-11-13 14:30] LABS: PLATELET ESTIMATE DECREASED (NORMAL)
[2018-11-13 14:31] LABS: ANISOCYTOSIS SLIGHT; HYPOCHROMIC SLIGHT
[2018-11-13 14:32] LABS: GIANT PLATELETS PRESENT
--- NOTE | 2018-11-13 14:39 | RAD ---
PROCEDURE: Left Hip X-ray Radiographs. HISTORY: Trauma 2 weeks ago presenting with left hip pain COMPARISON: None. TECHNIQUE: 2 views obtained. FINDINGS: BONES: Normal. No fracture. JOINTS: Normal. SOFT TISSUES: Normal. OTHER FINDINGS: None. IMPRESSION: Normal left hip radiographs.
[2018-11-13] MEDS ORDERED: Sodium Chloride 0.9% 100 ML ONE (14:42)
[2018-11-13] MEDS ORDERED: Iohexol 300 100 ML IJ ONE (14:42)
--- NOTE | 2018-11-13 14:48 | RAD ---
Date of service: 11/13/2018 PROCEDURE: Left femur HISTORY: leg injury COMPARISON: November 13, 2018. Pelvis left hip reported separately TECHNIQUE: Standard protocol for this study/examination. FINDINGS: No significant/acute osseous, articular or soft tissue abnormalities. IMPRESSION: No acute findings related to/ accounting for the clinical presentation.
[2018-11-13] MEDS ORDERED: Potassium Chloride 20 mEq ER Tab PO STA (15:30)
[2018-11-13] MEDS ORDERED: Potassium Chloride 20 mEq ER Tab PO ONE (15:37)
--- NOTE | 2018-11-13 15:53 | CT ---
Date of service: 11/13/2018 PROCEDURE: CT Pelvis with contrast HISTORY: INJURY 4 DAYS AGO LARGE HEMATOMA COMPARISON: None available. TECHNIQUE: Contiguous axial images of the pelvis with contrast. Coronal and sagittal reformats generated. Contrast dose: 95 cc Omnipaque 300. Radiation dose: Total exam DLP = 410.63 mGy-cm. This CT exam was performed using one or more of the following dose reduction techniques: Automated exposure control, adjustment of the mA and/or kV according to patient size, and/or use of iterative reconstruction technique. FINDINGS: BLADDER: Unremarkable. No mass. REPRODUCTIVE ORGANS: Unremarkable. VISUALIZED BOWEL: Unremarkable. PERITONEUM: Unremarkable, as visualized. No free fluid. No free air. LYMPH NODES: Unremarkable. No enlarged lymph nodes. VASCULATURE: No aortic atherosclerotic calcification or mural plaque present. BONES: No fracture or focal lesion. OTHER FINDINGS: Soft tissue mass/hematoma primarily affecting gluteus radha and medius muscles as well as sartorius and vastus lateralis muscles. IMPRESSION: Large extrapelvic hematoma affecting primarily left gluteal and abductor muscle groups. No intra pelvic component. No evidence of osseous abnormalities/fracture.
--- NOTE | 2018-11-13 16:02 | CT ---
Date of service: 11/13/2018 PROCEDURE: CT left lower extremity HISTORY: LEFT THIGH/HIP HEMATOMA COMPARISON: November 13, 2018. CT pelvis. TECHNIQUE: 2.5 mm axial acquisition and display. Coronal and sagittal reconstructions. Dose report (mGy-cm): 660.85 FINDINGS: Redemonstration of large hematoma affecting primarily the gluteal muscles and adductor musculature. The more distal aspects of the hematoma appear to circumferentially in vast the vastus lateralis muscle and there is well-defined tissue plane between the hematoma and the muscle. This extends to the distal thigh region approximately 10 cm above the joint space. Visualized osseous structures including femur, patella, tibial plateau region proximal fibula are unaffected by the process. The vascular structures including common and superficial femoral arteries and veins are patent. Popliteal artery and vein are also unremarkable. There is no evidence of compartment syndrome. IMPRESSION: Large lateral hematoma well in capsulated parallel to the left vastus lateralis muscle. More medially and anteriorly major arteries and veins are unaffected by this process. No visible osseous abnormality. There is no evidence of fracture or other findings of consequence.
--- NOTE | 2018-11-13 17:00 | CP.PCM.CON ---
<Jose De Jesus Lilly - Last Filed: 11/14/18 05:12> History of Present Illness - History of Present Illness History of Present Illness: General Surgery Consult for Dr. Archer Reason for consult: LLE hematoma s/p trauma 43M with PMH of EtOH abuse presents to [facility] for complaint of bruising, hematoma and pain of LLE. Patient was seen and evaluated in the ED. Patient states that 11 days ago he fell down two steps while getting out of a hot tub. Patient was drinking at the time and subsequently developed a bruise on left gluteal and thigh areas. Patient shrugged it off but the bruise had increased in size. Last night and today pain had exponentially worsened. Patient reports unable to stand or bend left knee. Patient still refused to go to ED but his friend made him. He rates pain as severe located in left gluteal and upper thigh radiating to lateral lower leg below the knee. He reports associated tingling. Compartment pressures were checked in upper thigh. Patient has palpable pulses throughout LLE and is able to dorsi- and plantarflex his left foot. Bilateral feet are warm to touch. Denies fever/chills, cp, SOB, n/v/d, constipation. PMH: EtOH abuse, SVT s/p ablation PSH: ablation for arrythmia ALL: NKDA Review of Systems - Review of Systems All systems: reviewed and no additional remarkable complaints except (as per HPI) Past Patient History - Infectious Disease Hx of Infectious Diseases: None - Past Medical History & Family History Past Medical History?: Yes - Past Social History Smoking Status: Light Smoker < 10 Cigarettes Daily - CARDIAC Hx Cardia Arrhythmia: Yes Hx Hypercholesterolemia: Yes Hx Hypertension: Yes - PULMONARY Hx Respiratory Disorders: No - NEUROLOGICAL Hx Neurological Disorder: No - HEENT Hx HEENT Problems: No - RENAL Hx Chronic Kidney Disease: No - ENDOCRINE/METABOLIC Hx Endocrine Disorders: No - HEMATOLOGICAL/ONCOLOGICAL Hx Blood Disorders: No - INTEGUMENTARY Hx Dermatological Problems: No - MUSCULOSKELETAL/RHEUMATOLOGICAL Hx Musculoskeletal Disorders: No Hx Falls: No - GASTROINTESTINAL Hx Gastrointestinal Disorders: No - GENITOURINARY/GYNECOLOGICAL Hx Genitourinary Disorders: No - PSYCHIATRIC Hx Psychophysiologic Disorder: No Hx Substance Use: No - SURGICAL HISTORY Hx Appendectomy: Yes (age 16) - ANESTHESIA Hx Anesthesia: Yes Hx Anesthesia Reactions: No Hx Malignant Hyperthermia: No Meds Allergies/Adverse Reactions: Allergies Allergy/AdvReac Type Severity Reaction Status Date / Time No Known Allergies Allergy Verified 05/29/17 09:30 - Medications Medications: Current Medications Sodium Chloride (Sodium Chloride 0.9%) 1,000 mls @ 500 mls/hr IV .Q2H STA Stop: 11/13/18 17:45 Lorazepam (Ativan) 1 mg IVP Q4 PRN PRN Reason: Symptoms of alcohol withdrawl Physical Exam - Constitutional Appears: No Acute Distress, Other (tremulous) - Head Exam Head Exam: ATRAUMATIC, NORMOCEPHALIC - Eye Exam Eye Exam: EOMI, Scleral icterus Pupil Exam: PERRL - ENT Exam ENT Exam: Mucous Membranes Dry - Neck Exam Neck exam: Positive for: Full Rom - Respiratory Exam Respiratory Exam: NORMAL BREATHING PATTERN - Cardiovascular Exam Cardiovascular Exam: REGULAR RHYTHM - GI/Abdominal Exam GI & Abdominal Exam: Normal Bowel Sounds, Soft. absent: Tenderness - Rectal Exam Rectal Exam: Deferred - Extremities Exam Extremities exam: Positive for: normal capillary refill, pedal pulses present Additional comments: LLE: large ecchymosis on left gluteal and upper thigh area, TTP, pulses 2+ throughout, warm to touch, unable to actively or passively bend knee due to pain, able to dorsiflex and plantarflex left foot Results - Vital Signs Recent Vital Signs: Last Vital Signs Temp 98 F 11/13/18 10:49 Pulse 78 11/13/18 15:09 Resp 17 11/13/18 10:49 BP 154/73 H 11/13/18 15:09 Pulse Ox 97 11/13/18 16:32 - Labs Result Diagrams: 11/13/18 20:35 11/13/18 12:15 Labs: Laboratory Results - last 24 hr 11/13/18 11/13/18 11/13/18 12:11 12:15 12:15 WBC 7.2 D RBC 2.79 L Hgb 9.5 L D Hct 27.7 L MCV 99.3 H MCH 34.1 H MCHC 34.3 RDW 13.7 Plt Count 89 L MPV 8.3 Neut % (Auto) 81.1 H Lymph % (Auto) 8.1 L Esmeralda % (Auto) 9.8 Eos % (Auto) 0.1 Baso % (Auto) 0.9 Neut # (Auto) 5.8 Lymph # (Auto) 0.6 L Esmeralda # (Auto) 0.7 Eos # (Auto) 0.0 Baso # (Auto) 0.1 Neutrophils % (Manual) 82 H Band Neutrophils % 1 Lymphocytes % (Manual) 8 L Monocytes % (Manual) 7 Eosinophils % (Manual) 1 Myelocytes % 1 H Platelet Estimate Decreased L Giant Platelets Present Hypochromasia (manual) Slight Anisocytosis (manual) Slight Macrocytosis (manual) Slight PT INR APTT Sodium 135 Potassium 3.0 L Chloride 99 Carbon Dioxide 17 L Anion Gap 22 H BUN 10 Creatinine 0.6 L Est GFR ( Amer) > 60 Est GFR (Non-Af Amer) > 60 POC Glucose (mg/dL) 120 H Random Glucose 101 Calcium 8.7 Total Bilirubin 3.0 H AST 267 H D ALT 59 Alkaline Phosphatase 242 H D Total Creatine Kinase 407 H Total Protein 8.3 H Albumin 4.1 Globulin 4.1 H Albumin/Globulin Ratio 1.0 Alcohol, Quantitative 24 H Blood Type Antibody Screen BBK History Checked 11/13/18 11/13/18 12:15 12:15 WBC RBC Hgb Hct MCV MCH MCHC RDW Plt Count MPV Neut % (Auto) Lymph % (Auto) Esmeralda % (Auto) Eos % (Auto) Baso % (Auto) Neut # (Auto) Lymph # (Auto) Esmeralda # (Auto) Eos # (Auto) Baso # (Auto) Neutrophils % (Manual) Band Neutrophils % Lymphocytes % (Manual) Monocytes % (Manual) Eosinophils % (Manual) Myelocytes % Platelet Estimate Giant Platelets Hypochromasia (manual) Anisocytosis (manual) Macrocytosis (manual) PT 16.0 H INR 1.4 APTT 38.7 H Sodium Potassium Chloride Carbon Dioxide Anion Gap BUN Creatinine Est GFR ( Amer) Est GFR (Non-Af Amer) POC Glucose (mg/dL) Random Glucose Calcium Total Bilirubin AST ALT Alkaline Phosphatase Total Creatine Kinase Total Protein Albumin Globulin Albumin/Globulin Ratio Alcohol, Quantitative Blood Type A POSITIVE Antibody Screen Negative BBK History Checked Patient has bt Assessment & Plan - Assessment and Plan (Free Text) Assessment: 43F s/p fall presents with large LLE hematoma and EtOH withdrawal Plan: -Warm compresses -Neurovascular checks -CIWA protocol -Medical management as per primary -Will continue to monitor -Discussed with Dr. Aba Lilly PGY2 - Date & Time Date: 11/13/18 Time: 17:00 <Carlton Troncoso - Last Filed: 11/14/18 07:47> Meds - Medications Medications: Current Medications Hydromorphone HCl (Dilaudid) 0.5 mg IVP Q3H PRN PRN Reason: Pain, severe (8-10) Stop: 11/15/18 18:51 Last Admin: 11/14/18 04:24 Dose: 0.5 mg Lactated Ringer's (Lactated Ringer's) 1,000 mls @ 125 mls/hr IV .Q8H [facility] Last Admin: 11/14/18 03:30 Dose: Not Given Lorazepam (Ativan) 1 mg IVP Q4 PRN PRN Reason: Symptoms of alcohol withdrawl Ondansetron HCl (Zofran Inj) 4 mg IVP Q6 PRN PRN Reason: Nausea/Vomiting Last Admin: 11/13/18 20:34 Dose: 4 mg Results - Vital Signs Recent Vital Signs: Last Vital Signs Temp 98.1 F 11/14/18 04:51 Pulse 87 11/14/18 04:51 Resp 16 11/14/18 04:51 BP 137/82 11/14/18 04:51 Pulse Ox 95 11/14/18 04:51 - Labs Result Diagrams: 11/14/18 04:50 11/14/18 04:50 Labs: Laboratory Results - last 24 hr 11/13/18 11/13/18 11/13/18 12:11 12:15 12:15 WBC 7.2 D RBC 2.79 L Hgb 9.5 L D Hct 27.7 L MCV 99.3 H MCH 34.1 H MCHC 34.3 RDW 13.7 Plt Count 89 L MPV 8.3 Neut % (Auto) 81.1 H Lymph % (Auto) 8.1 L Esmeralda % (Auto) 9.8 Eos % (Auto) 0.1 Baso % (Auto) 0.9 Neut # (Auto) 5.8 Lymph # (Auto) 0.6 L Esmeralda # (Auto) 0.7 Eos # (Auto) 0.0 Baso # (Auto) 0.1 Neutrophils % (Manual) 82 H Band Neutrophils % 1 Lymphocytes % (Manual) 8 L Monocytes % (Manual) 7 Eosinophils % (Manual) 1 Myelocytes % 1 H Platelet Estimate Decreased L Giant Platelets Present Hypochromasia (manual) Slight Anisocytosis (manual) Slight Macrocytosis (manual) Slight PT INR APTT Sodium 135 Potassium 3.0 L Chloride 99 Carbon Dioxide 17 L Anion Gap 22 H BUN 10 Creatinine 0.6 L Est GFR ( Amer) > 60 Est GFR (Non-Af Amer) > 60 POC Glucose (mg/dL) 120 H Random Glucose 101 Calcium 8.7 Phosphorus Magnesium Total Bilirubin 3.0 H AST 267 H D ALT 59 Alkaline Phosphatase 242 H D Total Creatine Kinase 407 H Total Protein 8.3 H Albumin 4.1 Globulin 4.1 H Albumin/Globulin Ratio 1.0 Alcohol, Quantitative 24 H Blood Type Antibody Screen BBK History Checked 11/13/18 11/13/18 11/13/18 12:15 12:15 16:45 WBC 7.1 RBC 2.64 L Hgb 9.1 L Hct 25.9 L MCV 98.1 H MCH 34.4 H MCHC 35.1 RDW 13.7 Plt Count 84 L MPV 7.9 Neut % (Auto) 80.0 H Lymph % (Auto) 9.9 L Esmeralda % (Auto) 8.9 Eos % (Auto) 0.2 Baso % (Auto) 1.0 Neut # (Auto) 5.7 Lymph # (Auto) 0.7 L Esmeralda # (Auto) 0.6 Eos # (Auto) 0.0 Baso # (Auto) 0.1 Neutrophils % (Manual) Band Neutrophils % Lymphocytes % (Manual) Monocytes % (Manual) Eosinophils % (Manual) Myelocytes % Platelet Estimate Giant Platelets Hypochromasia (manual) Anisocytosis (manual) Macrocytosis (manual) PT 16.0 H INR 1.4 APTT 38.7 H Sodium Potassium Chloride Carbon Dioxide Anion Gap BUN Creatinine Est GFR ( Amer) Est GFR (Non-Af Amer) POC Glucose (mg/dL) Random Glucose Calcium Phosphorus Magnesium Total Bilirubin AST ALT Alkaline Phosphatase Total Creatine Kinase Total Protein Albumin Globulin Albumin/Globulin Ratio Alcohol, Quantitative Blood Type A POSITIVE Antibody Screen Negative BBK History Checked Patient has bt 11/13/18 11/14/18 11/14/18 20:35 04:50 04:50 WBC 6.7 5.3 RBC 2.49 L 2.42 L Hgb 8.4 L 8.3 L Hct 24.9 L 24.3 L MCV 100.0 H 100.4 H MCH 33.9 H 34.4 H MCHC 33.9 34.3 RDW 13.7 14.0 Plt Count 75 L 72 L MPV 8.1 Neut % (Auto) 71.5 Lymph % (Auto) 16.2 L Esmeralda % (Auto) 9.2 Eos % (Auto) 1.9 Baso % (Auto) 1.2 Neut # (Auto) 3.8 Lymph # (Auto) 0.9 L Esmeralda # (Auto) 0.5 Eos # (Auto) 0.1 Baso # (Auto) 0.1 Neutrophils % (Manual) Band Neutrophils % Lymphocytes % (Manual) Monocytes % (Manual) Eosinophils % (Manual) Myelocytes % Platelet Estimate Giant Platelets Hypochromasia (manual) Anisocytosis (manual) Macrocytosis (manual) PT 16.5 H INR 1.5 APTT 38.1 H Sodium Potassium Chloride Carbon Dioxide Anion Gap BUN Creatinine Est GFR ( Amer) Est GFR (Non-Af Amer) POC Glucose (mg/dL) Random Glucose Calcium Phosphorus Magnesium Total Bilirubin AST ALT Alkaline Phosphatase Total Creatine Kinase Total Protein Albumin Globulin Albumin/Globulin Ratio Alcohol, Quantitative Blood Type Antibody Screen BBK History Checked 11/14/18 04:50 WBC RBC Hgb Hct MCV MCH MCHC RDW Plt Count MPV Neut % (Auto) Lymph % (Auto) Esmeralda % (Auto) Eos % (Auto) Baso % (Auto) Neut # (Auto) Lymph # (Auto) Esmeralda # (Auto) Eos # (Auto) Baso # (Auto) Neutrophils % (Manual) Band Neutrophils % Lymphocytes % (Manual) Monocytes % (Manual) Eosinophils % (Manual) Myelocytes % Platelet Estimate Giant Platelets Hypochromasia (manual) Anisocytosis (manual) Macrocytosis (manual) PT INR APTT Sodium 132 Potassium 3.5 L Chloride 99 Carbon Dioxide 25 Anion Gap 12 BUN 9 Creatinine 0.5 L Est GFR ( Amer) > 60 Est GFR (Non-Af Amer) > 60 POC Glucose (mg/dL) Random Glucose 104 Calcium 7.8 L Phosphorus 2.5 Magnesium 1.6 Total Bilirubin 3.7 H AST 184 H D ALT 49 Alkaline Phosphatase 190 H D Total Creatine Kinase Total Protein 7.1 Albumin 3.5 Globulin 3.6 Albumin/Globulin Ratio 1.0 Alcohol, Quantitative Blood Type Antibody Screen BBK History Checked Assessment & Plan - Assessment and Plan (Free Text) Plan: pt seen with [facility] 43yo M hx of ETOH abuse presents to ED 11 days after fall with complaints of left leg/gluteal pain. Pt s/p fall did not go to ED on initial fall states his left leg pain has worsened over this period of time and increased in severity this morning. Pain is constant and localized to left gluteal area. Reports numbness to left foot. Pt currently having tremors PMHx: EToh abuse, SVT ablation PSHx: denies All: NKDA SHx: daily drinking AVSS gen: awake, alert, NAD HEENT: NC/AT, EOmi, PERRLA, tracheal midline resp: no acute respiratory distress card: S1S2 abd: soft, NT, ND, no peritoneal signs, ecchymossis to left flank ethan: deferred neuro: follows command, no gross focal deficits ext: FROM to UE, RLE RLE no calf tenderness, no edema, no ecchymosis LLE: no calf tenderness, intact, sensation, +DP, popliteal pulses, ecchymosis to left gluteal/left thigh area, soft, compartments soft, decrease active motion, able to move leg on passive motion with some difficulty 43yo m s/p fall with left gluteal/thigh hematoma -no acute surgical intervention -no evidence of compartment syndrome -monitor HH, transfuse as needed -banana bag -monitor for withdrawals -warm compresses - Pt evaluation
[2018-11-13 17:31] LABS: BASO # 0.1 K/uL (0.0-0.2); EOS % 0.2 % (0.0-4.0); HEMOGLOBIN 9.1 g/dL (12.0-18.0); LYMPH # 0.7 K/uL (1.0-4.3); LYMPH % 9.9 % (20.0-40.0); MEAN CELL VOLUME 98.1 fl (80.0-94.0); MEAN CORPUSCULAR HEMOGLOBIN 34.4 pg (27.0-31.0); MEAN CORPUSCULAR HGB CONC 35.1 g/dL (33.0-37.0); MEAN PLATELET VOLUME 7.9 fl (7.2-11.7); MONO # 0.6 K/uL (0.0-0.8); MONO % 8.9 % (0.0-10.0); NEUT # 5.7 K/uL (1.8-7.0); RBC 2.64 Mil/uL (4.40-5.90); RED CELL DISTRIBUTION WIDTH 13.7 % (11.5-14.5); WHITE BLOOD COUNT 7.1 K/uL (4.8-10.8)
[2018-11-13] MEDS ORDERED: Morphine 4 MG/ML VIAL IVP STA (18:09)
[2018-11-13] MEDS ORDERED: Lactated Ringer's 1,000 ML IV SCH (19:00)
[2018-11-13] MEDS ORDERED: Multivitamin (MVI) 10 ML, Thiamine 100 MG, Folic Acid 1 MG in Dextrose 5%/0.45% NS 1,00... IV ONE (20:31)
[2018-11-13] MEDS: Lactated Ringer's 1,000 ML IV SCH (20:33)
--- NOTE | 2018-11-13 21:03 | CARD ---
APPROVED REPORT Date of service: 11/13/2018 EKG Measurement Heart [id number] <Conclusion> Baseline artifact precludes rhythm assessment Nonspecific ST and T wave abnormality Abnormal ECG
[2018-11-13 21:26] LABS: HEMOGLOBIN 8.4 g/dL (12.0-18.0); MEAN CORPUSCULAR HEMOGLOBIN 33.9 pg (27.0-31.0); MEAN CORPUSCULAR HGB CONC 33.9 g/dL (33.0-37.0); RBC 2.49 Mil/uL (4.40-5.90); RED CELL DISTRIBUTION WIDTH 13.7 % (11.5-14.5); WHITE BLOOD COUNT 6.7 K/uL (4.8-10.8)
[2018-11-13] MEDS: HYDROmorphone 0.5 mg/0.5 ml ISec IVP PRN (23:38)
[2018-11-14] MEDS: Lactated Ringer's 1,000 ML IV SCH ×2 (03:30→11:23)
[2018-11-14] MEDS: HYDROmorphone 0.5 mg/0.5 ml ISec IVP PRN ×5 (04:24→21:34)
[2018-11-14 05:45] LABS: INR 1.5; PROTHROMBIN TIME 16.5 Seconds (9.8-13.1)
[2018-11-14 05:47] LABS: PARTIAL THROMBOPLASTIN TIME 38.1 Seconds (25.6-37.1)
[2018-11-14 05:55] LABS: BASO # 0.1 K/uL (0.0-0.2); BASO % 1.2 % (0.0-2.0); EOS # 0.1 K/uL (0.0-0.7); EOS % 1.9 % (0.0-4.0); HEMOGLOBIN 8.3 g/dL (12.0-18.0); LYMPH # 0.9 K/uL (1.0-4.3); LYMPH % 16.2 % (20.0-40.0); MEAN CELL VOLUME 100.4 fl (80.0-94.0); MEAN CORPUSCULAR HEMOGLOBIN 34.4 pg (27.0-31.0); MEAN CORPUSCULAR HGB CONC 34.3 g/dL (33.0-37.0); MEAN PLATELET VOLUME 8.1 fl (7.2-11.7); MONO # 0.5 K/uL (0.0-0.8); MONO % 9.2 % (0.0-10.0); NEUT # 3.8 K/uL (1.8-7.0); NEUT % 71.5 % (50.0-75.0); NRBC % 0.1 % (0.0-0.0); RBC 2.42 Mil/uL (4.40-5.90); WHITE BLOOD COUNT 5.3 K/uL (4.8-10.8)
[2018-11-14 06:01] LABS: ALBUMIN 3.5 g/dL (3.5-5.0); ALT/SGPT 49 U/L (21-72); AST/SGOT 184 U/L (17-59); BLOOD UREA NITROGEN 9 mg/dl (9-20); CALCIUM 7.8 mg/dL (8.4-10.2); GFR NON-AFRICAN AMERICAN > 60
[2018-11-14] MEDS ORDERED: Multivitamin With Minerals Tab PO SCH (10:00)
--- NOTE | 2018-11-14 11:56 | CP.PCM.PN ---
Subjective - Date & Time of Evaluation Date of Evaluation: 11/14/18 Time of Evaluation: 10:45 - Subjective Subjective: General Surgery: Dr. Troncoso Patient seen and examined this am at bedside. NO acute events overnight per nursing. His pain has improved significantly and he is now able to move his toes and leg as well as having normal sensation return. Patient otherwise denies SHARIF, CP, SOB n/v, abdominal pain and numbness/weakness in leg. Objective - Vital Signs/Intake and Output Vital Signs (last 24 hours): Temp Pulse Resp BP Pulse Ox 98.1 F 78 18 142/82 97 11/14/18 09:00 11/14/18 09:00 11/14/18 09:00 11/14/18 09:00 11/14/18 09:00 - Medications Medications: Current Medications Chlordiazepoxide (Librium) 25 mg PO Q4H PRN PRN Reason: Withdrawl Folic Acid (Folic Acid) 1 mg PO DAILY [facility] Last Admin: 11/14/18 11:24 Dose: 1 mg Hydromorphone HCl (Dilaudid) 0.5 mg IVP Q3H PRN PRN Reason: Pain, severe (8-10) Stop: 11/15/18 18:51 Last Admin: 11/14/18 11:26 Dose: 0.5 mg Lactated Ringer's (Lactated Ringer's) 1,000 mls @ 125 mls/hr IV .Q8H [facility] Last Admin: 11/14/18 11:23 Dose: 125 mls/hr Lorazepam (Ativan) 1 mg IVP Q4 PRN PRN Reason: Symptoms of alcohol withdrawl Multivitamins/Minerals (Therapeutic-M Tab) 1 tab PO DAILY [facility] Last Admin: 11/14/18 11:24 Dose: 1 tab Ondansetron HCl (Zofran Inj) 4 mg IVP Q6 PRN PRN Reason: Nausea/Vomiting Last Admin: 11/13/18 20:34 Dose: 4 mg Thiamine HCl (Vitamin B1 Tab) 100 mg PO DAILY [facility] Last Admin: 11/14/18 11:24 Dose: 100 mg - Labs Labs: 11/14/18 04:50 11/14/18 04:50 PT 16.5 Seconds (9.8-13.1) H 11/14/18 04:50 INR 1.5 11/14/18 04:50 APTT 38.1 Seconds (25.6-37.1) H 11/14/18 04:50 - Constitutional Appears: Well, Non-toxic, No Acute Distress - Head Exam Head Exam: ATRAUMATIC, NORMOCEPHALIC - Eye Exam Eye Exam: EOMI - ENT Exam ENT Exam: Mucous Membranes Moist - Respiratory Exam Respiratory Exam: NORMAL BREATHING PATTERN - Cardiovascular Exam Cardiovascular Exam: REGULAR RHYTHM - GI/Abdominal Exam GI & Abdominal Exam: Soft. absent: Tenderness - Extremities Exam Extremities Exam: absent: Calf Tenderness, Pedal Edema Additional comments: large right lateral thigh hematoma with overlying ecchymosis - Neurological Exam Neurological Exam: Alert, Awake, Oriented x3 Additional comments: normal sensation lower extremities bilaterally, normal strength and motion of lower extremity - Psychiatric Exam Psychiatric exam: Normal Affect, Normal Mood - Skin Skin Exam: Dry, Intact, Warm Additional comments: large ecchymotic area to right lateral thigh with mild improvement Assessment and Plan - Assessment and Plan (Free Text) Assessment: 43 yr old male with right lateral thigh hematoma Plan: - clinically improved - continue warm compresses - no furhter surgical intervention at this time - please reconsult as necessary - furhter recs per Dr. Aba Castellanos, PGY 1
[2018-11-14 12:12] LABS: BLOOD UREA NITROGEN 5 mg/dl (9-20); CALCIUM 7.6 mg/dL (8.4-10.2); GFR NON-AFRICAN AMERICAN > 60
[2018-11-14 15:33] LABS: IRON 93 ug/dL (49-181)
[2018-11-14 15:42] LABS: % IRON SATURATION 42 % (20-55); TOTAL IRON BINDING CAPACITY 223 ug/dL (250-450)
--- NOTE | 2018-11-14 16:10 | CP.PCM.HP ---
History of Present Illness - History of Present Illness History of Present Illness: CC: FALL/TRAUMA 43 y/o M, PMHx of HTN, Cardiac Arrhythmia, Hypercholesterolemia, Alcohol abuse, [facility] [employer] [employer] [employer]. Pt tripped and fell while at home, presenting pain in his LLE described as constant, sharp, gradually increasing from date of trauma to severe intensity 9:10, associated hematoma in his L lower thigh extended to his L buttock, Pt came to hospital for non relief of pain. Aggravated factor: Unstable gait, heavy daily alcohol drinker (Alcohol Toxicology:24 H ) Aggravated factor: Walking/ exercise. Pt denied: Head contusion, fever, chills, n/v/d, abdominal pain, urinary symptoms, CP, palpitations, syncope, dizziness, SOB, cough, sick contact, recent travel out of [facility] Femur L X-Ray: No Fx. L Hip/Pelvis X-Ray: Normal Pelvis CT: Large extra pelvic hematoma affecting L gluteal and abductor muscle groups. L Lower Ext. CT: Large lateral hematoma well in capsulated parallel to the L vastus lateralis muscle. EKG: Baseline artifact preludes rhythm, nonspecific ST and T wave abnormality. Present on Admission - Present on Admission Any Indicators Present on Admission: No Review of Systems - Constitutional Constitutional: As Per HPI - EENT Eyes: Other (negative) Ears: Other (negative) Nose/Mouth/Throat: Other (negative) - Cardiovascular Cardiovascular: Other (negative) - Respiratory Respiratory: Other (negative) - Gastrointestinal Gastrointestinal: Other (negative) - Genitourinary Genitourinary: Other (negative) - Musculoskeletal Musculoskeletal: Abnormal Gait (2nd to trauma), Back Pain (L buttock pain), Limited Range of Motion (2nd to trauma), Radiating Pain into Limb, Other (LLE pain 2nd trauma) - Neurological Neurological: Other (negative) - Psychiatric Psychiatric: Anxiety - Endocrine Endocrine: Other (negative) - Hematologic/Lymphatic Hematologic: Other (anemia) Past Patient History - Infectious Disease Hx of Infectious Diseases: None - Past Medical History & Family History Past Medical History?: Yes Pertinent Family History: Father: Quadruple bypass at 60 y/o - Past Social History Smoking Status: Light Smoker < 10 Cigarettes Daily Alcohol: Other (Abuse daily.) Drugs: Denies Home Situation {Lives}: With Family - CARDIAC Hx Cardiac Disorders: Yes Hx Cardia Arrhythmia: Yes Hx Hypercholesterolemia: Yes Hx Hypertension: Yes - PULMONARY Hx Respiratory Disorders: No - NEUROLOGICAL Hx Neurological Disorder: No - HEENT Hx HEENT Problems: No - RENAL Hx Chronic Kidney Disease: No - ENDOCRINE/METABOLIC Hx Endocrine Disorders: No - HEMATOLOGICAL/ONCOLOGICAL Hx Blood Disorders: No - INTEGUMENTARY Hx Dermatological Problems: No - MUSCULOSKELETAL/RHEUMATOLOGICAL Hx Musculoskeletal Disorders: No Hx Falls: No - GASTROINTESTINAL Hx Gastrointestinal Disorders: No - GENITOURINARY/GYNECOLOGICAL Hx Genitourinary Disorders: No - PSYCHIATRIC Hx Psychophysiologic Disorder: No Hx Substance Use: No - SURGICAL HISTORY Hx Surgeries: Yes Hx Appendectomy: Yes (age 16) Hx Orthopedic Surgery: Yes (L elbow) - ANESTHESIA Hx Anesthesia: Yes Hx Anesthesia Reactions: No Hx Malignant Hyperthermia: No Meds Allergies/Adverse Reactions: Allergies Allergy/AdvReac Type Severity Reaction Status Date / Time No Known Allergies Allergy Verified 05/29/17 09:30 Physical Exam - Constitutional Appears: No Acute Distress - Head Exam Head Exam: NORMAL INSPECTION - Eye Exam Eye Exam: PERRL - ENT Exam ENT Exam: Normal Exam - Neck Exam Neck exam: Positive for: Normal Inspection - Respiratory Exam Respiratory Exam: NORMAL BREATHING PATTERN - Cardiovascular Exam Cardiovascular Exam: REGULAR RHYTHM - GI/Abdominal Exam GI & Abdominal Exam: Normal Bowel Sounds, Soft - Extremities Exam Additional comments: Large ecchymosis R gluteal region to posterior thigh with induration. - Back Exam Additional comments: Ecchymosis L gluteal - Neurological Exam Neurological exam: Alert, Oriented x3 Additional comments: Follows commands. - Psychiatric Exam Psychiatric exam: Anxious - Skin Skin Exam: Warm Results - Vital Signs Recent Vital Signs: Last Vital Signs Temp 98.4 F 11/14/18 12:00 Pulse 99 H 11/14/18 15:00 Resp 18 11/14/18 12:00 BP 136/76 11/14/18 12:00 Pulse Ox 96 11/14/18 12:00 tyree Martinez - Labs Result Diagrams: 11/14/18 04:50 11/14/18 10:55 Labs: Laboratory Results - last 24 hr 11/13/18 11/13/18 11/14/18 16:45 20:35 04:50 WBC 7.1 6.7 5.3 RBC 2.64 L 2.49 L 2.42 L Hgb 9.1 L 8.4 L 8.3 L Hct 25.9 L 24.9 L 24.3 L MCV 98.1 H 100.0 H 100.4 H MCH 34.4 H 33.9 H 34.4 H MCHC 35.1 33.9 34.3 RDW 13.7 13.7 14.0 Plt Count 84 L 75 L 72 L MPV 7.9 8.1 Neut % (Auto) 80.0 H 71.5 Lymph % (Auto) 9.[address] [place] % (Auto) 8.9 9.2 Eos % (Auto) 0.2 1.9 Baso % (Auto) 1.0 1.2 Neut # (Auto) 5.7 3.8 Lymph # (Auto) 0.[address] [place] # (Auto) 0.6 0.5 Eos # (Auto) 0.0 0.1 Baso # (Auto) 0.1 0.1 PT INR APTT Sodium Potassium Chloride Carbon Dioxide Anion Gap BUN Creatinine Est GFR ( Amer) Est GFR (Non-Af Amer) Random Glucose Calcium Phosphorus Magnesium Iron TIBC % Saturation Ferritin Total Bilirubin AST ALT Alkaline Phosphatase Total Protein Albumin Globulin Albumin/Globulin Ratio Free T4 TSH 3rd Generation 11/14/18 11/14/18 11/14/18 04:50 04:50 10:55 WBC RBC Hgb Hct MCV MCH MCHC RDW Plt Count MPV Neut % (Auto) Lymph % (Auto) [place] % (Auto) Eos % (Auto) Baso % (Auto) Neut # (Auto) Lymph # (Auto) [place] # (Auto) Eos # (Auto) Baso # (Auto) PT 16.5 H INR 1.5 APTT 38.1 H Sodium 132 129 L Potassium 3.5 L 3.4 L Chloride 99 97 L Carbon Dioxide 25 21 L Anion Gap 12 14 BUN 9 5 L Creatinine 0.5 L 0.4 L Est GFR ( Amer) > 60 > 60 Est GFR (Non-Af Amer) > 60 > 60 Random Glucose 104 114 H Calcium 7.8 L 7.6 L Phosphorus 2.5 Magnesium 1.6 Iron TIBC % Saturation Ferritin Total Bilirubin 3.7 H AST 184 H D ALT 49 Alkaline Phosphatase 190 H D Total Protein 7.1 Albumin 3.5 Globulin 3.6 Albumin/Globulin Ratio 1.0 Free T4 TSH 3rd Generation 1.21 11/14/18 11/14/18 11/14/18 10:55 15:00 15:00 WBC RBC Hgb Hct MCV MCH MCHC RDW Plt Count MPV Neut % (Auto) Lymph % (Auto) [place] % (Auto) Eos % (Auto) Baso % (Auto) Neut # (Auto) Lymph # (Auto) [place] # (Auto) Eos # (Auto) Baso # (Auto) PT INR APTT Sodium Potassium Chloride Carbon Dioxide Anion Gap BUN Creatinine Est GFR ( Amer) Est GFR (Non-Af Amer) Random Glucose Calcium Phosphorus Magnesium Iron 93 TIBC 223 L % Saturation 42 Ferritin 570.0 H Total Bilirubin AST ALT Alkaline Phosphatase Total Protein Albumin Globulin Albumin/Globulin Ratio Free T4 1.42 TSH 3rd Generation reviewed J.P. - EKG Data EKG comments: reviewed J.P. - Imaging and Cardiology CT scan - pelvis Status: Report reviewed by me (J.P.) Femur Status: Report reviewed by me (L Femur X-Ray) Hip/Pelvis X-Ray Status: Report reviewed by me LLE CT Status: Report reviewed by me (J.P.) Assessment & Plan (1) Status post fall Status: Acute Priority: High (2) Acute pain of left lower extremity Status: Acute Priority: High (3) Hematoma of left thigh Status: Acute Priority: High (4) Traumatic hematoma of buttock Status: Acute Priority: High (5) Alcohol withdrawal Status: Acute Priority: High (6) Alcohol abuse Status: Chronic Priority: High (7) Hematoma Status: Acute Priority: High (8) Hypokalemia Status: Acute Priority: High (9) Anemia Status: Acute Priority: High (10) Anxiety Status: Chronic Priority: High - Assessment and Plan (Free Text) Plan: F/U Drug Screen, Hepatitis Panel, Continue with Ativan, Librium, Potassium Chl, Folic Acid and rest of Tx. PT eval, Surgery consult appreciated - Date & Time Date: 11/14/18 Time: 11:00
[2018-11-14] MEDS: Potassium Chl 20 mEq in NS 1,000 ML IV SCH (16:26)
[2018-11-14 17:56] LABS: BARBITURATES, UR NEGATIVE (NEGATIVE); BENZODIAZEPINES, UR NEGATIVE (NEGATIVE); OPIATES, UR POSITIVE (NEGATIVE); PHENCYCLIDINE, UR NEGATIVE (NEGATIVE)
[2018-11-14 18:09] LABS: URINE BILIRUBIN NEGATIVE (NEGATIVE); URINE BLOOD NEGATIVE (NEGATIVE); URINE CLARITY SLIGHTY-CLOUDY (Clear); URINE COLOR AMBER (YELLOW); URINE GLUCOSE (UA) NEG (NEGATIVE); URINE LEUKOCYTE ESTERASE NEG Leu/uL (Negative); URINE PROTEIN NEGATIVE (NEGATIVE)
[2018-11-14 21:28] LABS: HEMOGLOBIN 8.1 g/dL (12.0-18.0); MEAN CELL VOLUME 99.3 fl (80.0-94.0); MEAN CORPUSCULAR HGB CONC 34.3 g/dL (33.0-37.0); RBC 2.38 Mil/uL (4.40-5.90); RED CELL DISTRIBUTION WIDTH 13.7 % (11.5-14.5); WHITE BLOOD COUNT 5.4 K/uL (4.8-10.8)
[2018-11-14 23:56] VITALS: PULSE 89
[2018-11-15] MEDS: Potassium Chl 20 mEq in NS 1,000 ML IV SCH (00:38)
[2018-11-15 04:35] VITALS: BP 146/80; RESP 16; TEMP 98.5; O2SAT 97
[2018-11-15 05:48] LABS: BLOOD UREA NITROGEN 3 mg/dl (9-20); CALCIUM 8.6 mg/dL (8.4-10.2); GFR NON-AFRICAN AMERICAN > 60
[2018-11-15 17:03] LABS: HEPATITIS B SURFACE AG Negative (NEGATIVE)
[2018-11-15 17:08] LABS: HEPATITIS A IGM NEGATIVE (NEGATIVE); HEPATITIS B CORE AB NEGATIVE (NEGATIVE)
[2018-11-15 17:20] LABS: HEPATITIS C ANTIBODY NEGATIVE (NEGATIVE)
== END 2018-11-15 07:15 | disposition left against medical advice (07) | DRG 605 ==
LOC: H.ER 10:46 → H.ERHOLD 13:40 → H.TEL 18:44
PROVIDERS: ADMIT Internal Medicine Pulmonary Disease; ATTEND Internal Medicine Pulmonary Disease
DX: S70.11XA Contusion of right thigh, initial encounter (principal); S80.12XA Contusion of left lower leg, initial encounter; F10.239 Alcohol dependence with withdrawal, unspecified; F10.229 Alcohol dependence with intoxication, unspecified; Y90.1 Blood alcohol level of 20-39 mg/100 ml; E87.6 Hypokalemia; D64.9 Anemia, unspecified; I10 Essential (primary) hypertension; E78.00 Pure hypercholesterolemia, unspecified; F17.210 Nicotine dependence, cigarettes, uncomplicated; W10.9XXA Fall (on) (from) unspecified stairs and steps, initial encounter; Y92.009 Unspecified place in unspecified non-institutional (private) residence as the place of occurrence of the external cause